=== PATIENT | female | born 1930 | race Caucasian/White ===

== ENCOUNTER 2016-10-10 08:55 | Outpatient (RCR) | payer OTHER | END 2016-10-23 | disposition home or self-care (01) | LOC: PTY 08:55 | DX: M25.512 Pain in left shoulder (principal); Z96.651 Presence of right artificial knee joint; M25.561 Pain in right knee | CPT/HCPCS: 97110; 97162; G0283 ==

== ENCOUNTER 2016-11-07 10:00 | Outpatient (RCR) | payer OTHER | END 2016-11-23 | disposition home or self-care (01) | LOC: PTY 10:00 | DX: M25.512 Pain in left shoulder (principal); Z96.651 Presence of right artificial knee joint; M25.561 Pain in right knee | CPT/HCPCS: 97110; G0283 ==

== ENCOUNTER 2016-12-21 11:00 | Outpatient (RCR) | payer OTHER | END 2016-12-23 | disposition home or self-care (01) | LOC: PTY 11:00 | DX: M25.512 Pain in left shoulder (principal); M25.561 Pain in right knee; Z96.651 Presence of right artificial knee joint | CPT/HCPCS: 97110; 97140; G0283 ==

== ENCOUNTER 2017-01-11 09:32 | Outpatient (RCR) | payer OTHER | END 2017-01-23 | disposition home or self-care (01) | LOC: PTY 09:32 | DX: M25.512 Pain in left shoulder (principal); Z96.651 Presence of right artificial knee joint; Z96.652 Presence of left artificial knee joint | CPT/HCPCS: 97110; G0283 ==

== ENCOUNTER 2017-01-26 08:20 | Outpatient (RCR) | payer OTHER | END 2017-02-22 | disposition home or self-care (01) | LOC: PTY 08:20 | DX: M25.512 Pain in left shoulder (principal); Z96.651 Presence of right artificial knee joint; M25.561 Pain in right knee | CPT/HCPCS: 97110; G0283 ==

== ENCOUNTER 2017-05-16 09:15 | Outpatient (RCR) | payer OTHER | END 2017-05-23 | disposition home or self-care (01) | LOC: PTY 09:15 | DX: R26.81 Unsteadiness on feet (principal); Z79.01 Long term (current) use of anticoagulants; R29.6 Repeated falls ==

== ENCOUNTER 2017-05-28 09:35 | Outpatient (RCR) | payer OTHER | END 2017-06-23 | disposition home or self-care (01) | LOC: PTY 09:35 | DX: R26.81 Unsteadiness on feet (principal); Z79.01 Long term (current) use of anticoagulants; R29.6 Repeated falls; M19.90 Unspecified osteoarthritis, unspecified site; M25.561 Pain in right knee; M25.512 Pain in left shoulder; Z96.653 Presence of artificial knee joint, bilateral ==

== ENCOUNTER 2017-06-28 09:10 | Outpatient (RCR) | payer OTHER | END 2017-07-23 | disposition home or self-care (01) | LOC: PTY 09:10 | DX: R26.81 Unsteadiness on feet (principal); Z79.01 Long term (current) use of anticoagulants; R29.6 Repeated falls; M19.90 Unspecified osteoarthritis, unspecified site; M25.561 Pain in right knee; M25.512 Pain in left shoulder; Z96.653 Presence of artificial knee joint, bilateral; Z85.9 Personal history of malignant neoplasm, unspecified ==

== ENCOUNTER 2017-08-14 11:30 | Outpatient (RCR) | payer OTHER | END 2017-08-23 | disposition home or self-care (01) | LOC: PTY 11:30 | DX: R26.81 Unsteadiness on feet (principal) ==